=== PATIENT | female | born 1960 | race Caucasian/White ===

== ENCOUNTER → 2023-06-15 09:23 | Outpatient (CLI) | payer BC, SELFPAY ==
--- NOTE | ~2023-06-15 | MMUS_ITS ---
EXAMINATION: MM diagnostic javi BI w she, US breast RT limited HISTORY: Follow-up for probably benign right breast mass TECHNIQUE: Craniocaudal, mediolateral, and mediolateral oblique 3-D tomosynthesis images of the benito ts were performed and synthetic 2-D images were generated. CAD analysis was submitted and interpreted . High resolution limited right breast ultrasound was performed. COMPARISON: 06/24/2022, 12/07/2021, 06/08/2021, 05/21/2021, 02/15/2018 BREAST PARENCHYMAL COMPOSITION: There are scattered areas of fibroglandular density. FINDINGS: MAMMOGRAPHIC FINDINGS: Right breast: There is a stable 6 mm oval, circumscribed, equal density mass with mildly lobular santo ins at the 6:00 location in the anterior third of the breast approximately 3 cm from the nipple. Ther e has been no suspicious interval change. Left breast: There is a chronic cyst in the anterior third of the lower inner breast. No suspicious m ass, calcification, or architectural distortion are identified. ULTRASOUND: There is a stable 3 mm round, circumscribed, hypoechoic mass with posterior acoustic shadowing and no internal vascularity at the 6:00 location, 3 cm from the nipple. IMPRESSION: 1. Stable, probably benign right breast mass. 2. Recommend 6 month follow-up right diagnostic mammogram and ultrasound to document two years of sta bility. BI-RADS category 3, probably benign findings. Reviewed, dictated and finalized at location A. IMPRESSION: 1. Stable, probably benign right breast mass. 2. Recommend 6 month follow-up right diagnostic mammogram and ultrasound to [facility] two years of stability. BI-RADS category 3, probably benign findings. IMPRESSION: 1. Stable, probably benign right breast mass. 2. Recommend 6 month follow-up [facility]. BI-RADS category 3, probably benign findings.
== END ==
PROVIDERS: PCP Physician Assistant; Visit Provider Physician Assistant
DX: R92.8 Other abnormal and inconclusive findings on diagnostic imaging of breast (principal)
CPT/HCPCS: 76642; 77062; 77066; G0279

== ENCOUNTER → 2023-07-27 10:22 | Outpatient (CLI) | payer BC, SELFPAY ==
--- NOTE | ~2023-07-27 | MR_ITS ---
MRI of the left shoulder Technique: Axial proton-density fat-sat images, coronal proton density fat-sat and T2 fat-sat images, and sagittal T1-weighted and T2 fat-sat images were acquired. Clinical History: Pain Findings: There is moderate AC joint degenerative change. Coracoclavicular, coracoacromial, coracohum eral ligaments appear intact. There is complete, full-thickness tear of the supraspinatus tendon, which extends to involve the ante rior portion of the infraspinatus tendon. Fluid-filled gap measures 3.0 x 1.6 cm in extent. Subscapul ambika tendon is intact, with mild tendinosis. Tendon of the long head of the biceps is intact. No definite labral tear seen. Inferior glenohumeral ligament is intact. There is minimal glenohumeral joint effusion, with fluid pa ssing through the rotator cuff defect into the subacromial/subdeltoid bursa. No degenerative change o f the glenohumeral joint. No muscle atrophy or edema evident. There is extensive soft tissue edema/fl uid in the axillary space. Impression: Complete, full-thickness tear of the supraspinatus tendon, which extends to involve the anterior port ion of the infraspinatus tendon. Please see details above. Moderate AC joint degenerative change. Extensive fluid/soft tissue edema in the axillary space, nonspecific. Reviewed, dictated and finalized at [facility]. [employer] Impression: Complete, full-thickness tear of the supraspinatus tendon, which extends to inv olve the anterior portion of the infraspinatus tendon. Please see details above . Moderate AC joint degenerative change. Extensive fluid/soft tissue edema in the axillary space, nonspecific.
== END ==
PROVIDERS: Visit Provider Physician Assistant
DX: M75.122 Complete rotator cuff tear or rupture of left shoulder, not specified as traumatic (principal); M19.012 Primary osteoarthritis, left shoulder; M79.89 Other specified soft tissue disorders
CPT/HCPCS: 73221

== ENCOUNTER 2024-05-20 08:21 | Outpatient (CLI) | payer BC, SELFPAY ==
--- NOTE | ~2024-05-20 | MMUS_ITS ---
EXAMINATION: MM diagnostic javi RT w she, US breast RT limited HISTORY: Six-month follow-up for probable benign right breast mass, nipple pain, resolved TECHNIQUE: 3-D tomosynthesis images of the right breast were performed and synthetic 2-D images were generated. CAD analysis was submitted and interpreted. High resolution limited right breast ultrasoun d was performed. COMPARISON: 06/15/2023, 06/24/2022 BREAST PARENCHYMAL COMPOSITION:Not Dense. The breasts are almost entirely fatty FINDINGS: MAMMOGRAPHIC FINDINGS: Parenchymal pattern right breast is unchanged. Stable 6 mm right subareolar mass mammographically. No suspicious mass lesion or distortion. No suspicious microcalcification. ULTRASOUND: Stable 3 mm hypoechoic lesion which posterior shadowing at the 6:00 position right breast, 3 cm from the nipple. IMPRESSION: Stable examination. Stable mammographic evaluation. Stable 3 mm hypoechoic lesion at 6:00 position r ight breast sonographically. BI-RADS Category 2: Benign finding(s). Reviewed, dictated and finalized at location . IMPRESSION: Stable examination. Stable mammographic evaluation. Stable 3 mm hypoechoic les ion at 6:00 position right breast sonographically. BI-RADS Category 2: Benign finding(s).
== END 2024-05-20 08:22 | disposition home or self-care (01) ==
PROVIDERS: PCP Physician Assistant; Visit Provider Physician Assistant
DX: N64.9 Disorder of breast, unspecified (principal); Q83.9 Congenital malformation of breast, unspecified; R92.30 Dense breasts, unspecified; N64.0 Fissure and fistula of nipple
CPT/HCPCS: 76642; 77061; 77065; G0279

== ENCOUNTER 2024-10-17 13:34 | Outpatient (CLI) | payer BC, SELFPAY ==
--- NOTE | ~2024-10-17 | MM_ITS ---
EXAMINATION: MM screening javi BI w she HISTORY: Screening mammogram TECHNIQUE: Craniocaudal and mediolateral oblique 3-D tomosynthesis images were obtained and synthetic 2-D images were generated. CAD analysis was submitted and interpreted. COMPARISON: 05/20/2024, 06/15/2023, 06/24/2022 BREAST PARENCHYMAL COMPOSITION:Not Dense. The breasts are almost entirely fatty FINDINGS: No suspicious mass, calcification, or architectural distortion are identified in either khadar ast to suggest malignancy. There has been no suspicious interval change. IMPRESSION: No mammographic evidence of malignancy. Recommend routine screening mammography in one year. BI-RADS Category 1: Negative Reviewed, dictated and finalized at location . [employer]
== END 2024-10-17 13:35 | disposition home or self-care (01) ==
LOC: MICIMG 13:35
PROVIDERS: PCP Physician Assistant; Visit Provider Physician Assistant
DX: Z12.31 Encounter for screening mammogram for malignant neoplasm of breast (principal)
CPT/HCPCS: 77063; 77067